=== PATIENT | male | born 1980 | race African-American/Black ===

== ENCOUNTER 2018-09-04 21:30 | Emergency (ER) | payer MEDICAID ==
[2018-09-04] MEDS ORDERED: IBUPROFEN 600 MG TAB PO ONE (21:55)
[2018-09-04] MEDS ORDERED: CYCLOBENZAPRINE 10 MG TAB PO ONE (21:55)
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
[2018-09-04 22:44] VITALS: BP 142/76
== END 2018-09-04 22:55 | disposition home or self-care (01) ==
DX: S39.92XA Unspecified injury of lower back, initial encounter (principal); V18.0XXA Pedal cycle driver injured in noncollision transport accident in nontraffic accident, initial encounter; Y93.55 Activity, bike riding; Y92.410 Unspecified street and highway as the place of occurrence of the external cause; F17.200 Nicotine dependence, unspecified, uncomplicated; Z59.0 Homelessness